=== PATIENT | male | born 1970 | race African-American/Black ===

== ENCOUNTER 2023-03-24 12:57 | Inpatient (IN) | payer OTHER ==
[2023-03-24 16:10] VITALS: BMI 22.7
[2023-03-24] MEDS ORDERED: NALOXONE HCL (KLOXXADO) 8 MG SPRAY NS PRN (18:15)
[2023-03-24] MEDS ORDERED: MAGNESIUM HYDROX 2400MG/30ML ORAL SUSPENSION 30 ML CUP PO PRN (18:15)
[2023-03-24] MEDS ORDERED: BENZOCAINE/MENTHOL (CHLORASEPTIC ) LOZENGE MM PRN (18:15)
[2023-03-24] MEDS ORDERED: BISMUTH SUBSALICYLATE 524 MG/30 ML PO PRN (18:15)
[2023-03-24] MEDS ORDERED: IBUPROFEN 600 MG TABLET (FP) PO PRN (18:15)
[2023-03-24] MEDS ORDERED: ACETAMINOPHEN 325 MG TABLET (FP) PO PRN (18:15)
[2023-03-24] MEDS ORDERED: cloNIDine HCL 0.1 MG TABLET PO PRN (18:15)
[2023-03-24] MEDS ORDERED: methaDONE HCL 10 MG TABLET (FOR DETOX USE ONLY) PO ONE (18:15)
[2023-03-24] MEDS ORDERED: DICYCLOMINE HCL 10 MG CAPSULE PO PRN (18:15)
[2023-03-24] MEDS ORDERED: LOPERAMIDE HCL 2 MG CAPSULE PO PRN (18:15)
[2023-03-24] MEDS ORDERED: NALOXONE HCL 0.4 MG/ML VIAL IM PRN (18:15)
[2023-03-24] MEDS ORDERED: ONDANSETRON *ODT* 4 MG TABLET SL PRN (18:15)
[2023-03-24] MEDS ORDERED: MAG HYDROX/AL HYDROX/SIMETH 30 ML UNIT-DOSE CUP PO PRN (18:15)
[2023-03-24] MEDS ORDERED: BENZONATATE 200 MG CAPSULE PO PRN (18:15)
[2023-03-24] MEDS ORDERED: guaiFENesin 600 MG TABLET.ER (FP) PO PRN (18:15)
[2023-03-24] MEDS ORDERED: POLYETHYLENE GLYCOL (HEALTHYLAX) 3350 17 GM PACKET PO PRN (18:15)
[2023-03-24] MEDS ORDERED: IBUPROFEN 400 MG TABLET (FP) PO PRN (18:15)
[2023-03-24] MEDS ORDERED: methaDONE HCL 10 MG TABLET (FOR DETOX USE ONLY) ONE (18:57)
[2023-03-24] MEDS: METHOCARBAMOL 500 MG TABLET PO PRN (22:11)
[2023-03-24] MEDS: THIAMINE HCL 100 MG TABLET (FP) PO SCH (22:11)
[2023-03-24] MEDS: hydrOXYzine PAMOATE 25 MG CAPSULE (FP) PO PRN (22:11)
[2023-03-24] MEDS: MELATONIN 5 MG TABLETS PO SCH (22:11)
[2023-03-25] MEDS: PRENATAL VITAMINS W/ FOLIC ACID TABLET (FP) PO SCH (10:38)
[2023-03-25 10:40] LABS: CHLORIDE 107 mmol/L (98-107); POTASSIUM 4.1 mmol/L (3.5-5.1); SODIUM 141 mmol/L (136-145)
[2023-03-25 10:50] LABS: HEMATOCRIT 44.7 % (35.4-49); HEMOGLOBIN 14.9 GM/dL (11.7-16.9); MCH 29.1 pg (25.7-33.7); MCHC 33.5 g/dl (32.0-35.9); MEAN CELL VOLUME 86.9 fl (80-96); MEAN PLT VOLUME 8.3 fl (7.5-11.1); PLATELET COUNT 259 10^3/uL (134-434); RBC 5.14 M/mm3 (4.00-5.60); RDW 14.6 % (11.9-15.9); WHITE BLOOD COUNT 4.4 K/mm3 (4.0-10.0)
[2023-03-25 11:02] LABS: BLOOD UREA NITROGEN 12.1 mg/dL (7-18); CALCIUM 8.7 mg/dL (8.5-10.1)
[2023-03-25 11:04] LABS: ANION GAP 5 mmol/L (4-13); CO2 29 mmol/L (21-32); GLUCOSE,RANDOM 91 mg/dL (74-106)
[2023-03-25 11:06] LABS: BILIRUBIN,TOTAL 0.4 mg/dL (0.2-1); SGOT/AST 15 U/L (15-37); SGPT/ALT 17 U/L (13-61); TOT PROT 6.1 g/dl (6.4-8.2)
[2023-03-25 11:08] LABS: ALK PHOS 110 U/L (45-117)
[2023-03-25] MEDS: METHOCARBAMOL 500 MG TABLET PO PRN ×2 (15:26→22:13)
[2023-03-25] MEDS: THIAMINE HCL 100 MG TABLET (FP) PO SCH (22:12)
[2023-03-25] MEDS: MELATONIN 5 MG TABLETS PO SCH (22:12)
[2023-03-26] MEDS: hydrOXYzine PAMOATE 25 MG CAPSULE (FP) PO PRN ×2 (03:57→13:09)
[2023-03-26] MEDS ORDERED: methaDONE HCL 10 MG TABLET (FOR DETOX USE ONLY) PO ONE (10:00)
[2023-03-26] MEDS: PRENATAL VITAMINS W/ FOLIC ACID TABLET (FP) PO SCH (10:05)
[2023-03-26] MEDS: METHOCARBAMOL 500 MG TABLET PO PRN ×2 (10:07→17:05)
[2023-03-26] MEDS ORDERED: GABAPENTIN 100 MG CAPSULE PO SCH (12:52)
[2023-03-26] MEDS ORDERED: GABAPENTIN 100 MG CAPSULE PO ONE (13:05)
[2023-03-26] MEDS: THIAMINE HCL 100 MG TABLET (FP) PO SCH (22:17)
[2023-03-26] MEDS: MELATONIN 5 MG TABLETS PO SCH (22:17)
[2023-03-26] MEDS: QUEtiapine FUMARATE 100 MG TABLET (FP) PO SCH (22:18)
[2023-03-27] MEDS: METHOCARBAMOL 500 MG TABLET PO PRN (07:36)
[2023-03-27] MEDS: PRENATAL VITAMINS W/ FOLIC ACID TABLET (FP) PO SCH (10:02)
[2023-03-27] MEDS ORDERED: GABAPENTIN 100 MG CAPSULE PO ONE (10:51)
[2023-03-27] MEDS: GABAPENTIN 100 MG CAPSULE PO SCH ×2 (13:21→22:15)
[2023-03-27] MEDS ORDERED: GABAPENTIN 300 MG CAPSULE PO SCH (14:00)
[2023-03-27] MEDS: THIAMINE HCL 100 MG TABLET (FP) PO SCH (22:15)
[2023-03-27] MEDS: MELATONIN 5 MG TABLETS PO SCH (22:15)
[2023-03-27] MEDS: QUEtiapine FUMARATE 100 MG TABLET (FP) PO SCH (22:15)
[2023-03-28] MEDS: GABAPENTIN 100 MG CAPSULE PO SCH ×3 (05:57→22:19)
[2023-03-28] MEDS ORDERED: methaDONE HCL 10 MG TABLET (FOR DETOX USE ONLY) PO ONE (10:00)
[2023-03-28] MEDS: METHOCARBAMOL 500 MG TABLET PO PRN ×2 (10:06→22:18)
[2023-03-28] MEDS: PRENATAL VITAMINS W/ FOLIC ACID TABLET (FP) PO SCH (10:06)
[2023-03-28 12:55] VITALS: RESP 18
[2023-03-28] MEDS: MINERAL OIL/PET HY-PHL TOPICAL OINTMENT 454 GM JAR TP SCH ×2 (14:56→22:20)
[2023-03-28] MEDS: QUEtiapine FUMARATE 100 MG TABLET (FP) PO SCH (22:19)
[2023-03-28] MEDS: THIAMINE HCL 100 MG TABLET (FP) PO SCH (22:19)
[2023-03-28] MEDS: hydrOXYzine PAMOATE 25 MG CAPSULE (FP) PO PRN (22:19)
[2023-03-28] MEDS: MELATONIN 5 MG TABLETS PO SCH (22:19)
[2023-03-29] MEDS: GABAPENTIN 100 MG CAPSULE PO SCH (05:22)
[2023-03-29 06:30] VITALS: BP 106/64; PULSE 72; TEMP 97.7
[2023-03-29] MEDS: MINERAL OIL/PET HY-PHL TOPICAL OINTMENT 454 GM JAR TP SCH (09:02)
[2023-03-29] MEDS: PRENATAL VITAMINS W/ FOLIC ACID TABLET (FP) PO SCH (09:02)
[2023-03-29] MEDS: METHOCARBAMOL 500 MG TABLET PO PRN (09:04)
== END 2023-03-29 09:06 | disposition home or self-care (01) | DRG 773 ==
LOC: YASAS 12:57 → Y6N 17:19 → Y3N 03-26 06:16
PROVIDERS: ADMIT Allergy & Immunology; ATTEND Surgery
PROC: HZ2ZZZZ Detoxification Services for Substance Abuse Treatment (ICD-10-PCS; principal; 2023-03-24)
DX: F11.23 Opioid dependence with withdrawal (principal); F14.20 Cocaine dependence, uncomplicated; F17.210 Nicotine dependence, cigarettes, uncomplicated; F19.24 Other psychoactive substance dependence with psychoactive substance-induced mood disorder; F41.9 Anxiety disorder, unspecified; F32.A Depression, unspecified; G47.00 Insomnia, unspecified; Z63.4 Disappearance and death of family member; Z86.73 Personal history of transient ischemic attack (TIA), and cerebral infarction without residual deficits; Z59.00 Homelessness unspecified
CPT/HCPCS: 36415; 80053; 80307; 85027; 86780; 87635

== ENCOUNTER 2023-08-03 17:20 | Inpatient (IN) | payer OTHER ==
[2023-08-03 17:51] VITALS: BMI 22.6
[2023-08-03] MEDS ORDERED: NALOXONE HCL 0.4 MG/ML VIAL IM PRN (23:23)
[2023-08-03] MEDS ORDERED: ACETAMINOPHEN 325 MG TABLET (FP) PO PRN (23:23)
[2023-08-03] MEDS ORDERED: P-EPHED 60MG/TRIPROLIDI 2.5MG TABLET PO PRN (23:23)
[2023-08-03] MEDS ORDERED: NICOTINE POLACRILEX 2 MG LOZENGE BC PRN (23:23)
[2023-08-03] MEDS ORDERED: BENZONATATE 200 MG CAPSULE PO PRN (23:23)
[2023-08-03] MEDS ORDERED: guaiFENesin 600 MG TABLET.ER (FP) PO PRN (23:23)
[2023-08-03] MEDS ORDERED: LOPERAMIDE HCL 2 MG CAPSULE PO PRN (23:23)
[2023-08-03] MEDS ORDERED: BISMUTH SUBSALICYLATE 524 MG/30 ML PO PRN (23:23)
[2023-08-03] MEDS ORDERED: IBUPROFEN 400 MG TABLET (FP) PO PRN (23:23)
[2023-08-03] MEDS ORDERED: MAGNESIUM HYDROX 2400MG/30ML ORAL SUSPENSION 30 ML CUP PO PRN (23:23)
[2023-08-03] MEDS ORDERED: DICYCLOMINE HCL 10 MG CAPSULE PO PRN (23:23)
[2023-08-03] MEDS ORDERED: ONDANSETRON *ODT* 4 MG TABLET SL PRN (23:23)
[2023-08-03] MEDS ORDERED: POLYETHYLENE GLYCOL (HEALTHYLAX) 3350 17 GM PACKET PO PRN (23:23)
[2023-08-03] MEDS ORDERED: NALOXONE HCL (KLOXXADO) 8 MG SPRAY NS PRN (23:23)
[2023-08-03] MEDS ORDERED: IBUPROFEN 600 MG TABLET (FP) PO PRN (23:23)
[2023-08-03] MEDS ORDERED: MAG HYDROX/AL HYDROX/SIMETH 30 ML UNIT-DOSE CUP PO PRN (23:23)
[2023-08-03] MEDS ORDERED: NICOTINE POLACRILEX 2 MG GUM BUC PRN (23:23)
[2023-08-03] MEDS ORDERED: BENZOCAINE/MENTHOL (CHLORASEPTIC ) LOZENGE MM PRN (23:23)
[2023-08-04] MEDS: METHOCARBAMOL 500 MG TABLET PO PRN (01:17)
[2023-08-04] MEDS: hydrOXYzine PAMOATE 25 MG CAPSULE (FP) PO PRN (01:17)
[2023-08-04] MEDS: cloNIDine HCL 0.1 MG TABLET PO PRN (03:09)
[2023-08-04] MEDS: PRENATAL VITAMINS W/ FOLIC ACID TABLET (FP) PO SCH (10:08)
[2023-08-04] MEDS ORDERED: cloNIDine HCL 0.1 MG TABLET PO PRN (10:20)
[2023-08-04] MEDS: methaDONE HCL 10 MG TABLET (FOR DETOX USE ONLY) PO ONE (10:37)
[2023-08-04] MEDS: diazePAM 5 MG TABLET PO SCH (10:40)
[2023-08-04 11:51] LABS: ALBUMIN 2.8 g/dl (3.4-5.0); CALCIUM 8.6 mg/dL (8.5-10.1)
[2023-08-04 11:52] LABS: BLOOD UREA NITROGEN 15.8 mg/dL (7-18)
[2023-08-04 11:53] LABS: CREATININE 1.1 mg/dL (0.55-1.3)
[2023-08-04 11:54] LABS: TOT PROT 5.8 g/dl (6.4-8.2)
[2023-08-04 11:55] LABS: BILIRUBIN,TOTAL 0.5 mg/dL (0.2-1)
[2023-08-04 12:00] LABS: HEMATOCRIT 41.3 % (35.4-49); HEMOGLOBIN 13.9 GM/dL (11.7-16.9); MCH 29.7 pg (25.7-33.7); MCHC 33.6 g/dl (32.0-35.9); MEAN CELL VOLUME 88.4 fl (80-96); MEAN PLT VOLUME 8.8 fl (7.5-11.1); PLATELET COUNT 275 10^3/uL (134-434); RBC 4.67 M/mm3 (4.00-5.60); RDW 14.8 % (11.9-15.9); WHITE BLOOD COUNT 3.8 K/mm3 (4.0-10.0)
[2023-08-04] MEDS: THIAMINE 100 MG TABLET PO SCH (22:10)
[2023-08-04] MEDS: MELATONIN 5 MG TABLETS PO SCH (22:10)
[2023-08-05] MEDS: NAPROXEN 500 MG TABLET PO SCH (10:48)
[2023-08-05] MEDS: predniSONE 20 MG TABLET (UD) PO SCH (10:48)
[2023-08-06] MEDS: diazePAM 5 MG TABLET PO SCH (05:52)
[2023-08-06] MEDS: methaDONE HCL 10 MG TABLET (FOR DETOX USE ONLY) PO ONE (09:37)
[2023-08-06] MEDS: diazePAM 5 MG TABLET PO PRN (09:38)
[2023-08-06] MEDS: NICOTINE 14 MG/24 HOURS TOPICAL PATCH TD SCH (15:14)
[2023-08-06] MEDS: GABAPENTIN 100 MG CAPSULE PO SCH (16:20)
[2023-08-07] MEDS: diazePAM 5 MG TABLET PO SCH (05:25)
[2023-08-08] MEDS: diazePAM 5 MG TABLET PO ONE (05:25)
[2023-08-08] MEDS ORDERED: INSULIN ASPART SLIDING SCALE (NOVOLOG) 1 VIAL SQ ONE (07:55)
[2023-08-08] MEDS: methaDONE HCL 10 MG TABLET (FOR DETOX USE ONLY) PO ONE (09:35)
[2023-08-09 06:18] VITALS: BP 140/86; PULSE 67; RESP 16; TEMP 98.2
== END 2023-08-09 08:45 | disposition home or self-care (01) | DRG 773 ==
LOC: YASAS 17:20 → Y3N 23:29
PROVIDERS: ADMIT Allergy & Immunology; ATTEND Surgery
PROC: HZ2ZZZZ Detoxification Services for Substance Abuse Treatment (ICD-10-PCS; principal; 2023-08-03)
DX: F11.23 Opioid dependence with withdrawal (principal); F14.20 Cocaine dependence, uncomplicated; F17.210 Nicotine dependence, cigarettes, uncomplicated; F19.94 Other psychoactive substance use, unspecified with psychoactive substance-induced mood disorder; K21.9 Gastro-esophageal reflux disease without esophagitis; D57.3 Sickle-cell trait; M54.59 Other low back pain; G89.29 Other chronic pain; Z86.73 Personal history of transient ischemic attack (TIA), and cerebral infarction without residual deficits; Z56.0 Unemployment, unspecified; Z59.00 Homelessness unspecified
CPT/HCPCS: 36415; 80053; 80305; 85027; 86780; 93005; 93010

== ENCOUNTER 2023-11-29 16:46 | Emergency (ER) | payer OTHER ==
[2023-11-29 17:18] VITALS: BP 120/73; PULSE 97; RESP 14; TEMP 99.2; BMI 26.9
== END 2023-11-29 18:41 | disposition short-term general hospital (02) ==
LOC: JER 16:46
DX: T40.604A Poisoning by unspecified narcotics, undetermined, initial encounter (principal)
CPT/HCPCS: 99282-25

== ENCOUNTER 2023-11-29 19:45 | Inpatient (IN) | payer OTHER ==
[2023-11-29 20:15] VITALS: BMI 25.1
[2023-11-29] MEDS ORDERED: NALOXONE (NARCAN) HCL 4 MG/0.1 ML SPRAY NS PRN (20:45)
[2023-11-29] MEDS ORDERED: IBUPROFEN 400 MG TABLET (FP) PO PRN (20:45)
[2023-11-29] MEDS ORDERED: ONDANSETRON *ODT* 4 MG TABLET SL PRN (20:45)
[2023-11-29] MEDS ORDERED: ACETAMINOPHEN 325 MG TABLET (FP) PO PRN (20:45)
[2023-11-29] MEDS ORDERED: MAG HYDROX/AL HYDROX/SIMETH 30 ML UNIT-DOSE CUP PO PRN (20:45)
[2023-11-29] MEDS ORDERED: NALOXONE HCL 0.4 MG/ML VIAL IM PRN (20:45)
[2023-11-29] MEDS ORDERED: BENZOCAINE/MENTHOL (CHLORASEPTIC ) LOZENGE MM PRN (20:45)
[2023-11-29] MEDS ORDERED: POLYETHYLENE GLYCOL (HEALTHYLAX) 3350 17 GM PACKET PO PRN (20:45)
[2023-11-29] MEDS ORDERED: BISMUTH SUBSALICYLATE 524 MG/30 ML PO PRN (20:45)
[2023-11-29] MEDS ORDERED: NICOTINE POLACRILEX 4 MG GUM BUC PRN (20:45)
[2023-11-29] MEDS ORDERED: LOPERAMIDE HCL 2 MG CAPSULE PO PRN (20:45)
[2023-11-29] MEDS ORDERED: BENZONATATE 200 MG CAPSULE PO PRN (20:45)
[2023-11-29] MEDS ORDERED: DICYCLOMINE HCL 10 MG CAPSULE PO PRN (20:45)
[2023-11-29] MEDS ORDERED: MAGNESIUM HYDROX 2400MG/30ML ORAL SUSPENSION 30 ML CUP PO PRN (20:45)
[2023-11-29] MEDS ORDERED: guaiFENesin 600 MG TABLET.ER (FP) PO PRN (20:45)
[2023-11-29] MEDS ORDERED: IBUPROFEN 600 MG TABLET (FP) PO ONE (21:13)
[2023-11-29] MEDS: THIAMINE 100 MG TABLET PO SCH (21:19)
[2023-11-29] MEDS: IBUPROFEN 600 MG TABLET (FP) PO PRN (21:19)
[2023-11-30 10:02] LABS: HEMOGLOBIN 14.9 GM/dL (11.7-16.9); MCH 30.5 pg (25.7-33.7); MCHC 33.9 g/dl (32.0-35.9); MEAN CELL VOLUME 90.1 fl (80-96); MEAN PLT VOLUME 8.4 fl (7.5-11.1); PLATELET COUNT 278 10^3/uL (134-434); RBC 4.89 M/mm3 (4.00-5.60); RDW 14.6 % (11.9-15.9); WHITE BLOOD COUNT 5.3 K/mm3 (4.0-10.0)
[2023-11-30 10:04] LABS: CHLORIDE 96 mmol/L (98-107); POTASSIUM 3.5 mmol/L (3.5-5.1); SODIUM 137 mmol/L (136-145)
[2023-11-30 10:07] LABS: CALCIUM 9.4 mg/dL (8.5-10.1)
[2023-11-30 10:08] LABS: ALBUMIN 3.3 g/dl (3.4-5.0); ANION GAP 6 mmol/L (4-13); BLOOD UREA NITROGEN 33.7 mg/dL (7-18); CO2 35 mmol/L (21-32); GLUCOSE,RANDOM 105 mg/dL (74-106)
[2023-11-30 10:11] LABS: CREATININE 1.7 mg/dL (0.55-1.3); SGOT/AST 40 U/L (15-37); SGPT/ALT 44 U/L (13-61)
[2023-11-30 10:12] LABS: BILIRUBIN,TOTAL 0.2 mg/dL (0.2-1); TOT PROT 6.7 g/dl (6.4-8.2)
[2023-11-30 10:14] LABS: ALK PHOS 122 U/L (45-117)
[2023-11-30] MEDS: GABAPENTIN 300 MG CAPSULE PO SCH (10:49)
[2023-11-30] MEDS: methaDONE HCL 10 MG TABLET (FOR DETOX USE ONLY) PO ONE (10:49)
[2023-11-30] MEDS: PRENATAL VITAMINS W/ FOLIC ACID TABLET (FP) PO SCH (10:50)
[2023-11-30] MEDS: NICOTINE 21 MG/24 HOURS TOPICAL PATCH TD SCH (10:50)
[2023-11-30 11:14] LABS: HIV INTERPRETATION NEGATIVE (NEGATIVE)
[2023-11-30] MEDS: QUEtiapine FUMARATE 100 MG TABLET (FP) PO SCH (21:42)
[2023-11-30] MEDS: cloNIDine HCL 0.1 MG TABLET PO PRN (21:42)
[2023-12-01] MEDS: PNEUMOC 20-VAL CONJ-DIP CRM/PF 0.5 ML SYRINGE IM ONE (11:12)
[2023-12-02] MEDS: methaDONE HCL 10 MG TABLET (FOR DETOX USE ONLY) PO ONE (09:51)
[2023-12-02] MEDS: METHOCARBAMOL 500 MG TABLET PO PRN (22:24)
[2023-12-04 06:12] VITALS: RESP 16
[2023-12-04 08:54] VITALS: BP 117/76; PULSE 75; TEMP 98.6
[2023-12-04] MEDS: methaDONE HCL 10 MG TABLET (FOR DETOX USE ONLY) PO ONE (09:31)
== END 2023-12-04 11:19 | disposition home or self-care (01) | DRG 773 ==
LOC: YASAS 19:45 → Y3N 21:06
PROVIDERS: ADMIT Allergy & Immunology; ATTEND Allergy & Immunology
PROC: HZ2ZZZZ Detoxification Services for Substance Abuse Treatment (ICD-10-PCS; principal; 2023-11-29)
DX: F11.23 Opioid dependence with withdrawal (principal); F14.20 Cocaine dependence, uncomplicated; F12.20 Cannabis dependence, uncomplicated; F17.210 Nicotine dependence, cigarettes, uncomplicated; F19.24 Other psychoactive substance dependence with psychoactive substance-induced mood disorder; F32.A Depression, unspecified; F41.9 Anxiety disorder, unspecified; K21.9 Gastro-esophageal reflux disease without esophagitis; G47.00 Insomnia, unspecified; Z59.00 Homelessness unspecified; Z91.199 Patient's noncompliance with other medical treatment and regimen due to unspecified reason
CPT/HCPCS: 36415; 80053; 80305; 80307; 82565; 84520; 85027; 86780; 86803; 87389; 90677; 93005; 93010; G0009